=== PATIENT | female | born 1985 | race Hispanic/Latino ===

== ENCOUNTER 2018-12-03 18:03 | Emergency (ER) | payer OTHER ==
[~2018-12-03] VITALS: Ht 154.9 cm; Wt 65.8 kg
--- OUTSIDE RECORDS SUMMARY | 2018-12-03 18:04 | XMS REPORT | Clinical Summary ---
Author Author [facility] Address Unknown Phone Unavailable Care Team Providers Care Warehouse Delivery Manager Name Role Phone Shay Mclaughlin MD PCP Allergies No Known Allergies Medications End Date Status Medication Sig Dispensed Refills Start Date 12/03/2017 ibuprofen (ADVIL,MOTRIN) Take 1 tablet 30 tablet 0 600 MG tablet (600 mg 8 total) by mouth every 8 (eight) hours as needed for moderate pain for up to 30 days. 12/03/2017 cyclobenzaprine Take 1 tablet 20 tablet 0 (FLEXERIL) 5 mg tablet (5 mg total) 8 by mouth 2 (two) times a day as needed for muscle spasms for up to 30 days. Active Problems Not on file Social History Date Tobacco Use Types Packs/Day Years Used Never Smoker Smokeless Tobacco: Never Used Alcohol Use Drinks/Week oz/Week Comments Yes socially Sex Assigned at Date Recorded Not on file Industry Job Start Date Occupation Not on file Not on file Not on file Travel End Travel History Travel Start No recent travel history available. Last Filed Vital Signs Not on file Plan of Treatment Health Maintenance Due Date Last Done Comments CERVICAL CANCER SCREENING 12/26/2004 INFLUENZA VACCINE 02/16/2019 Results Not on fileafter 12/02/2017 Insurance Payer Benefit Subscriber ID Type Phone Address Plan / Group [facility] xxxxxxxxx HMO/PPO THCARE CHOICE/CHO ICE + Advance Directives Patient has advance care planning documents on file. For more information, allison raya contact: Jerrell Thomason [id number] [place] [address]
--- OUTSIDE RECORDS SUMMARY | 2018-12-03 18:04 | XMS REPORT ---
[facility] Address Unknown Phone Unavailable Care Team Providers Care Senior Principal Process Engineer Name Role Phone Unavailable Unavailable Problems This patient has no known problems. Allergies, Adverse Reactions, Alerts This patient has no known allergies or adverse reactions. Medications This patient has no known medications. Encounters Start Date/Time End Date/Time Encounter Type Admission Type Attending [facility] Care Department Encounter ID 2017-08-11 00:00:00 2017-08-11 00:00:00 Outpatient [facility] [id number] 2017-07-28 10:14:21 2017-07-28 10:14:21 Outpatient [facility] [id number] 2017-07-28 00:00:00 2017-07-28 00:00:00 Outpatient [facility] [id number] 2017-07-21 00:00:00 2017-07-21 00:00:00 Outpatient [facility] [id number] 2017-07-14 08:37:26 2017-07-14 08:37:26 Outpatient [facility] [id number] 2017-07-14 08:37:09 2017-07-14 08:37:09 Outpatient [facility] [id number] 2017-07-13 00:00:00 2017-07-13 00:00:00 Outpatient [facility] [id number] 2017-07-07 11:05:34 2017-07-07 11:05:34 Outpatient [facility] [id number]
[2018-12-03] MEDS ORDERED: ONDANSETRON HCL INJ 2MG/ML 2ML 2 MG/ML VIAL IV NR (18:17)
[2018-12-03] MEDS ORDERED: SODIUM CHLORIDE 0.9% 1000ML 1,000 ML IV STA (18:17)
[2018-12-03] MEDS ORDERED: KETOROLAC TROMETHAMINE 30 MG/ML VIAL IV NR (18:30)
[2018-12-03 18:41] LABS: BASOPHILS # (AUTO) 0.1 (0.0-0.1); BASOPHILS % 0.6 % (0.0-1.0); EOSINOPHILS # (AUTO) 0.1 (0.0-0.4); EOSINOPHILS % 0.7 % (0.0-6.0); HEMOGLOBIN 12.6 g/dL (12.0-16.0); LYMPHOCYTES # (AUTO) 2.8 (1.0-3.2); LYMPHOCYTES % 22.8 % (18.0-39.1); MEAN CORPUSCULAR HEMOGLOBIN 30.5 pg (28-32); MEAN CORPUSCULAR HGB CONC 34.1 g/dL (31-35); MEAN CORPUSCULAR VOLUME 89.6 fL (81-99); MONOCYTES # (AUTO) 0.8 (0.2-0.8); MONOCYTES % 6.2 % (4.4-11.3); NEUTROPHILS # (AUTO) 8.6 (2.1-6.9); NEUTROPHILS % 69.4 % (38.7-80.0); PLATELET COUNT 339 x10e3/uL (140-360); RED BLOOD COUNT 4.13 x10e6/uL (3.6-5.1); RED CELL DISTRIBUTION WIDTH 13.7 % (11.7-14.4)
[2018-12-03 18:43] LABS: BILIRUBIN,URINE NEGATIVE (NEGATIVE); CLARITY,URINE SL CLOUDY (CLEAR); COLOR,URINE YELLOW (YELLOW); KETONES,URINE NEGATIVE (NEGATIVE); LEUKOCYTE ESTERASE ,URINE NEGATIVE (NEGATIVE); NITRITE,URINE NEGATIVE (NEGATIVE); PREGNANCY TEST, URINE NEGATIVE (NEGATIVE); PROTEIN,URINE DIPSTICK TRACE (NEGATIVE); URINE UROBILINOGEN 0.2 mg/dL (0.2 - 1)
[2018-12-03 18:55] LABS: BACTERIA,URINE MODERATE /HPF; EPITHELIAL CELLS,URINE FEW /LPF
--- NOTE | 2018-12-03 18:55 | NUR ---
MEDICATED WITH 30MG IV TORADOL FOR BACK PAIN;Rated 10/10 AND 4MG ZOFRAN FOR NAUSEA. ivf bolus infusing with no problem
[2018-12-03] MEDS ORDERED: IOPAMIDOL 370 MG/ML 200 ML INFUS..BTL INJ ONE (18:59)
[2018-12-03] MEDS ORDERED: SODIUM CHLORIDE 0.9% 50ML 50 ML ONE (18:59)
[2018-12-03 19:00] LABS: ALANINE AMINOTRANSFERASE 12 IU/L (0-55); ALBUMIN 3.7 g/dL (3.5-5.0); ALBUMIN/GLOBULIN RATIO 1.1 (0.8-2.0); ALKALINE PHOSPHATASE 50 IU/L (40-150); ANION GAP 14.7 mmol/L (8-16); BLOOD UREA NITROGEN 13 mg/dL (7-26); BUN/CREATININE RATIO 20 (6-25); CALCIUM 9.4 mg/dL (8.4-10.2); CARBON DIOXIDE 20 mmol/L (22-29); CHLORIDE 107 mmol/L (98-107); CREATININE, SERUM 0.66 mg/dL (0.57-1.11); EST GLOMERULAR FILTRATION RATE > 60 ML/MIN (60-); GLUCOSE 87 mg/dL (74-118); POTASSIUM 3.7 mmol/L (3.5-5.1); SODIUM 138 mmol/L (136-145)
--- NOTE | 2018-12-03 19:49 | Diagnostic Imaging Report ---
EXAMINATION: CT of the abdomen and pelvis with contrast. TECHNIQUE: Spiral CT images of the abdomen and pelvis were performed from the lung bases to the lesser trochanters after the intravenous administration of 100 cc of Isovue 370 and the oral administration of water. Coronal and sagittal reformatted images were obtained. COMPARISON: None. CLINICAL HISTORY:Right lower quadrant pain for one week, nausea DISCUSSION: ABDOMEN/PELVIS: LOWER THORAX:Unremarkable. HEPATOBILIARY: No focal hepatic lesions. No intra or extrahepatic biliary ductal dilation. GALLBLADDER: No radio-opaque stones or sludge. No wall thickening. SPLEEN: No splenomegaly. PANCREAS: No focal masses or ductal dilatation. ADRENALS: No adrenal nodules. KIDNEYS/URETERS: No hydronephrosis, stones, or solid mass lesions. PELVIC ORGANS/BLADDER: The bladder is unremarkable. Uterus unremarkable. No adnexal masses. Tubular hypodensity in the vagina consistent with a tampon. PERITONEUM/RETROPERITONEUM: No free air or fluid. LYMPH NODES: No intra-abdominal, retroperitoneal, pelvic or inguinal lymphadenopathy. VESSELS: The celiac trunk,superior and inferior mesenteric and bilateral renal arteries are patent The portal, superior mesenteric and splenic veins are patent. GI TRACT: No bowel dilation or evidence of obstruction. No pericolonic inflammatory changes. Appendix is well identified and normal in caliber. BONES AND SOFT TISSUE: No aggressive lytic lesions. Small fat-containing and infraumbilical hernia. IMPRESSION: 1. No acute abdominopelvic abnormalities. Specifically, no acute abnormal findings in the right lower quadrant to explain the patient's pain. 2. No bowel dilation or evidence of obstruction. Appendix is well identified and normal in caliber. Signed by: Dr. Jeremie Sanders M.D. on 12/03/2018 7:46 PM
[2018-12-03] MEDS ORDERED: ONDANSETRON HCL INJ 2MG/ML 2ML 2 MG/ML VIAL IV STA (20:03)
[2018-12-03] MEDS ORDERED: MORPHINE SULFATE INJ 4 MG/ML INJ 1ML IV STA (20:03)
--- NOTE | 2018-12-03 20:26 | NUR ---
MEDICATED FOR BACK PAIN WITH 4MG IV MORPHINE; RATED 8/10 AND 4MG IV ZOFRAN FOR NAUSEA. PT LAYING IN BED SWINGING HER LEGS OVER THE SIDERAIL AND LAUGHING WITH SPOUSE AT SIDE
--- NOTE | 2018-12-03 20:30 | NUR ---
UP TO BR WITH A STEADY GAIT
--- NOTE | 2018-12-03 21:37 | Diagnostic Imaging Report ---
EXAM: Transvaginal Pelvic Ultrasound INDICATION: ^abd pain spotting COMPARISON: None TECHNIQUE: Grayscale transverse and sagittal transvaginal images were obtained of the pelvis. Transvaginal imaging was medically necessary to better evaluate the endometrium. CLINICAL HISTORY: 32 year old G5, ; last menstrual period: 10/24/2018. FINDINGS: Uterus: Orientation: Anteverted Size: 8.7 x 5.0 x 6.1 cm, Normal Mass: None Cervix: Nabothian cysts Endometrium: Thickness: 0.7 cm, Normal. Appearance: Homogeneous echotexture without focal thickening. Right ovary: Size: 3.4 x 1.2 x 2.4 cm Mass/Cyst: None. Normal follicles are identified. Left ovary: Size: 3.4 x 1.5 x 1.9 cm Mass/Cyst: None. 1.1 x 0.9 x 1.0 cm anechoic structure in the left ovary consistent with a dominant follicle. Adnexa: Normal Cul-de-sac: No free fluid Bilateral normal arterial and venous flow is documented in the ovaries. IMPRESSION: Unremarkable pelvic ultrasound exam. Low likelihood of torsion, with normal arterial and venous flow identified in both ovaries Signed by: Dr. Jeremie Sanders M.D. on 12/03/2018 9:34 PM
[2018-12-03] MEDS ORDERED: PROMETHAZINE HCL (IM) 25 MG/ML VIAL IM STA (21:44)
--- NOTE | 2018-12-03 21:47 | NUR ---
BACK FROM ULTRA SOUND AND REQUESTING MEDICATION FOR NAUSEA. DR. BARR INFORMED AND HAS ORDERED PHENERGAN. UPON ENTERING ROOM AND LETTING THE PT. KNOW, , SHE STATED, "WHEN IS MY PAIN MEDICATION DUE AGAIN?." INFORMED HER THAT THE MORPHINE WAS A ONE TIME DOSE.
--- NOTE | 2018-12-03 21:58 | NUR ---
med given for nausea and pt requesting more pain medication, again
== END 2018-12-03 23:01 | disposition home or self-care (01) ==
LOC: ER 18:03
DX: R10.31 Right lower quadrant pain (principal); R11.2 Nausea with vomiting, unspecified
CPT/HCPCS: 36415; 74177; 76830; 80053; 81001; 81025; 85025; 99284; J1885; J2270; J2405; J2550; J7030; Q9967